=== PATIENT | female | born 1980 | race Caucasian/White ===

== ENCOUNTER → 2019-10-24 | Outpatient (CLI) | payer OTHER ==
[2019-10-24 16:03] LABS: BASOPHILS ABSOLUTE AUTO 0.03 K/mm3 (0.00-0.23); BASOPHILS PERCENT AUTO 1 % (0-2); EOSINOPHILS ABSOLUTE AUTO 0.14 K/mm3 (0.00-0.68); EOSINOPHILS PERCENT AUTO 3 % (0-6); Hematocrit 44.3 % (33.0-51.0); Hemoglobin 14.2 g/dL (11.5-16.0); IMMATURE GRAN ABSOLUTE AUTO 0.01 K/mm3 (0.00-0.10); IMMATURE GRAN PERCENT AUTO 0 % (0-1); LYMPHOCYTES ABSOLUTE AUTO 2.18 K/mm3 (0.84-5.20); LYMPHOCYTES PERCENT AUTO 39 % (21-46); MONOCYTES ABSOLUTE AUTO 0.27 K/mm3 (0.16-1.47); MONOCYTES PERCENT AUTO 5 % (4-13); Mean Corpuscular HGB Conc 32.1 g/dL (31.5-36.5); Mean Corpuscular Volume 90 fL (80-100); NEUTROPHILS ABSOLUTE AUTO 2.92 K/mm3 (1.96-9.15); NEUTROPHILS PERCENT AUTO 53 % (41-73); RDW Coefficient Variation 13.3 % (11.7-14.2); RDW Standard Deviation 44.1 fL (35.1-46.3); White Blood Cell Count 5.55 K/mm3 (4.00-11.30)
[2019-10-24 16:27] LABS: Platelet Count 246 K/mm3 (150-400)
[2019-10-25 13:52] LABS: Candida species (DNA Probe) Negative (NEGATIVE); G. vaginalis (DNA Probe) Positive (NEGATIVE); T. vaginalis (DNA Probe) Positive (NEGATIVE)
[2019-10-26 16:06] LABS: CHLAMYDIA TRACHOMATIS, NAA Negative (Negative); NEISSERIA GONORRHOEAE, NAA Negative (Negative)
== END | disposition home or self-care (01) ==
LOC: LAB SHORT 14:50 → LAB EV 14:50
PROVIDERS: Physician Assistant
DX: N76.0 Acute vaginitis (principal); R53.83 Other fatigue
CPT/HCPCS: 36415; 85025; 87480; 87491; 87510; 87591; 87660

== ENCOUNTER 2020-11-04 19:25 | Emergency (ER) | payer OTHER ==
[~2020-11-04] VITALS: Ht 167.6 cm; Wt 95.2 kg
[2020-11-04 20:28] LABS: Source, Urine Clean Catch
[2020-11-04 20:30] LABS: Bilirubin, Urine Neg (Neg); Blood, Urine 4+ (Neg); Glucose Qualitative, Urine Neg (Neg); Ketones, Urine Neg (Neg); Leukocyte Esterase, Urine 3+ (Neg); Nitrite, Urine Neg (Neg); Protein, Urine 1+ (Neg); Urobilinogen, Urine NORM (Normal)
[2020-11-04 20:36] LABS: Appearance, Urine Clear (Clear); Color, Urine Pale Yellow (P-Yellow)
[2020-11-04 20:38] LABS: Red Blood Cells, Urine Not Seen /hpf (0-2)
[2020-11-04 20:39] LABS: Bacteria Not Seen /hpf; Squamous Epithelial Cells Mod /hpf (Few); Trichomonas Mod /hpf
[2020-11-04 21:00] LABS: BASOPHILS ABSOLUTE AUTO 0.03 K/mm3 (0.00-0.23); BASOPHILS PERCENT AUTO 0 % (0-2); EOSINOPHILS ABSOLUTE AUTO 0.02 K/mm3 (0.00-0.68); EOSINOPHILS PERCENT AUTO 0 % (0-6); Hemoglobin 14.1 g/dL (11.5-16.0); IMMATURE GRAN ABSOLUTE AUTO 0.04 K/mm3 (0.00-0.10); IMMATURE GRAN PERCENT AUTO 0 % (0-1); LYMPHOCYTES ABSOLUTE AUTO 1.05 K/mm3 (0.84-5.20); LYMPHOCYTES PERCENT AUTO 11 % (21-46); MONOCYTES ABSOLUTE AUTO 0.67 K/mm3 (0.16-1.47); MONOCYTES PERCENT AUTO 7 % (4-13); Mean Corpuscular HGB 28.5 pg (26.0-34.0); Mean Corpuscular HGB Conc 32.8 g/dL (31.5-36.5); Mean Corpuscular Volume 87 fL (80-100); Mean Platelet Volume 10.1 fL (9.1-12.4); NEUTROPHILS ABSOLUTE AUTO 8.12 K/mm3 (1.96-9.15); NEUTROPHILS PERCENT AUTO 82 % (41-73); Platelet Count 218 K/mm3 (150-400); RDW Coefficient Variation 12.9 % (11.7-14.2); RDW Standard Deviation 41.1 fL (35.1-46.3); Red Blood Cell Count 4.95 M/mm3 (3.80-5.20); White Blood Cell Count 9.93 K/mm3 (4.00-11.30)
[2020-11-04 21:18] LABS: Alanine Aminotransfer (ALT/SGP 195 U/L (12-78); Albumin, Blood 3.4 g/dL (3.4-5.0); Albumin/Globulin Ratio 0.8 (0.8-1.8); Alk Phos 141 U/L (50-136); Anion Gap 7 mmol/L (6-16); Aspartate Aminotrans (AST/SGOT 147 U/L (12-37); Bilirubin, Total 0.9 mg/dL (0.1-1.0); Blood Urea Nitrogen 10 mg/dL (8-24); Bun/Creatinine Ratio 9.5 (12.0-20.0); CO2, Blood 24 mmol/L (21-32); Calcium, Blood 8.4 mg/dL (8.5-10.1); Chloride, Blood 105 mmol/L (98-108); Creatinine, Blood 1.05 mg/dL (0.40-1.00); Globulin, Blood 4.2 g/dL (2.2-4.0); Glomerular Filtration Rate >60 (60-); Glucose, Blood 93 mg/dL (70-99); Potassium, Blood 3.7 mmol/L (3.5-5.5); Sodium, Blood 136 mmol/L (136-145); Total Protein, Blood 7.6 g/dL (6.4-8.2)
[2020-11-05] MEDS ORDERED: Vibramycin100 MG PO (00:20)
== END 2020-11-05 00:40 | disposition home or self-care (01) ==
LOC: ER 19:25
PROVIDERS: Physician Assistant
DX: N76.0 Acute vaginitis (principal); B96.89 Other specified bacterial agents as the cause of diseases classified elsewhere; N20.9 Urinary calculus, unspecified; F17.210 Nicotine dependence, cigarettes, uncomplicated; Z88.0 Allergy status to penicillin; Z88.5 Allergy status to narcotic agent
CPT/HCPCS: 36415; 74176; 76705; 80053; 81001; 83690; 85025; 87077; 87086; 87186; 96361; 96374; 96375; 99284-25; A9270; J1170; J2405; J7030

== ENCOUNTER 2020-11-06 23:16 | Emergency (ER) | payer OTHER ==
[~2020-11-06] VITALS: Ht 167.6 cm; Wt 99.8 kg
[~2020-11-06 23:16] MED LIST: Vibramycin100 MG PO
[2020-11-07 00:29] LABS: BASOPHILS ABSOLUTE AUTO 0.02 K/mm3 (0.00-0.23); BASOPHILS PERCENT AUTO 0 % (0-2); EOSINOPHILS ABSOLUTE AUTO 0.01 K/mm3 (0.00-0.68); EOSINOPHILS PERCENT AUTO 0 % (0-6); Hematocrit 42.7 % (33.0-51.0); Hemoglobin 13.6 g/dL (11.5-16.0); IMMATURE GRAN ABSOLUTE AUTO 0.05 K/mm3 (0.00-0.10); IMMATURE GRAN PERCENT AUTO 1 % (0-1); LYMPHOCYTES ABSOLUTE AUTO 0.53 K/mm3 (0.84-5.20); LYMPHOCYTES PERCENT AUTO 5 % (21-46); MONOCYTES ABSOLUTE AUTO 1.44 K/mm3 (0.16-1.47); MONOCYTES PERCENT AUTO 14 % (4-13); Mean Corpuscular HGB 27.9 pg (26.0-34.0); Mean Corpuscular HGB Conc 31.9 g/dL (31.5-36.5); Mean Corpuscular Volume 88 fL (80-100); Mean Platelet Volume 10.5 fL (9.1-12.4); NEUTROPHILS ABSOLUTE AUTO 8.53 K/mm3 (1.96-9.15); NEUTROPHILS PERCENT AUTO 81 % (41-73); Platelet Count 194 K/mm3 (150-400); RDW Coefficient Variation 12.9 % (11.7-14.2); RDW Standard Deviation 41.7 fL (35.1-46.3); Red Blood Cell Count 4.88 M/mm3 (3.80-5.20); White Blood Cell Count 10.58 K/mm3 (4.00-11.30)
[2020-11-07 00:41] LABS: Source, Urine Clean Catch
[2020-11-07 00:46] LABS: Appearance, Urine Cloudy (Clear); Blood, Urine 5+ (Neg); Color, Urine Amber (P-Yellow); Glucose Qualitative, Urine Neg (Neg); Ketones, Urine 1+ (Neg); Leukocyte Esterase, Urine 2+ (Neg); Nitrite, Urine Pos (Neg); Protein, Urine 3+ (Neg); Specific Gravity, Urine 1.015 (1.003-1.022); Urobilinogen, Urine 4+ (Normal)
[2020-11-07 00:48] LABS: Bilirubin, Urine 2+ (Neg)
[2020-11-07 00:50] LABS: Alanine Aminotransfer (ALT/SGP 188 U/L (12-78); Albumin, Blood 2.7 g/dL (3.4-5.0); Albumin/Globulin Ratio 0.6 (0.8-1.8); Alk Phos 247 U/L (50-136); Anion Gap 9 mmol/L (6-16); Aspartate Aminotrans (AST/SGOT 56 U/L (12-37); Bilirubin, Total 1.9 mg/dL (0.1-1.0); Blood Urea Nitrogen 8 mg/dL (8-24); Bun/Creatinine Ratio 8.3 (12.0-20.0); CO2, Blood 22 mmol/L (21-32); Calcium, Blood 7.9 mg/dL (8.5-10.1); Chloride, Blood 102 mmol/L (98-108); Creatinine, Blood 0.96 mg/dL (0.40-1.00); Globulin, Blood 4.3 g/dL (2.2-4.0); Glomerular Filtration Rate >60 (60-); Glucose, Blood 123 mg/dL (70-99); Potassium, Blood 3.4 mmol/L (3.5-5.5); Sodium, Blood 133 mmol/L (136-145)
[2020-11-07 00:51] LABS: White Blood Cells, Urine TNTC /hpf (0-5)
[2020-11-07 00:52] LABS: Bacteria Many /hpf; Red Blood Cells, Urine TNTC /hpf (0-2); Squamous Epithelial Cells Few /hpf (Few); Trichomonas Few /hpf
[2020-11-07] MEDS ORDERED: METR500 PO (01:05)
[2020-11-07] MEDS ORDERED: CIPR500 PO (01:05)
== END 2020-11-07 03:38 | disposition home or self-care (01) ==
LOC: ER 23:16
PROVIDERS: Physician Assistant
DX: N20.9 Urinary calculus, unspecified (principal); N76.0 Acute vaginitis; F17.210 Nicotine dependence, cigarettes, uncomplicated; Z88.0 Allergy status to penicillin; Z88.5 Allergy status to narcotic agent
CPT/HCPCS: 36415; 74022; 76705; 80053; 81001; 83690; 84484; 85025; 87086; 93005; 93010; 96374; 96375; 99285-25; A9270; J2270; J2550

== ENCOUNTER → 2021-01-18 | Outpatient (CLI) | payer OTHER ==
[~2021-01-18] MED LIST changes: +CIPR500 PO; +METR500 PO
== END | disposition home or self-care (01) ==
LOC: LAB SHORT 18:49 → LAB EV 18:49
DX: N39.0 Urinary tract infection, site not specified (principal)
CPT/HCPCS: 87086